=== PATIENT | female | born 1950 | race Hispanic/Latino ===

== ENCOUNTER → 2018-11-13 | Outpatient (CLI) | payer MEDICARE ==
--- NOTE | 2018-11-13 16:30 | Diagnostic Imaging Report ---
Solid-phase gastric emptying study Reason for examination: Chronic GERD; chronic nausea The protocol used for this study is based on the Consensus Recommendations for Gastric Scintigraphy by the [place] [employer] and the Society of [employer]. Clinical information: The patient is not diabetic. The patient has not had previous gastrointestinal surgery other than cholecystectomy in 2006. The patient is not on any medications expected to affect gastric motility. The patient has been fasting for at least 6 hours prior to this exam. Radiopharmaceutical: Tc-99m sulfur colloid 1 mCi Report: The radiopharmaceutical was added to 1/2 cup egg whites that were then prepared and served with 2 pieces of white bread toasted, 30 grams of jam and 4 ounces of water. The patient took the meal orally without difficulty. Images were obtained of the abdomen in the anterior and posterior projections at 10 minutes post the meal and at 1and 2 hours. Uptake was determined from the geometric mean of the anterior and posterior counts and the counts were corrected for decay of the radiolabel. The percent gastric retention of the labeled meal at: 1 hour was 57% (normal 30-90%) 2 hours was 19% (normal <60%; retention less than 35% identifies a normal study) Impression: The pattern of gastric emptying is normal. Scan findings do not support the clinical diagnosis of gastroparesis. Signed by: Dr. Diane Garg M.D. on 11/13/2018 4:27 PM
== END ==
LOC: NM 08:01
PROVIDERS: ATTEND Internal Medicine Gastroenterology
DX: R11.0 Nausea (principal); E66.9 Obesity, unspecified; Z71.3 Dietary counseling and surveillance
CPT/HCPCS: 78264; A9541